=== PATIENT | male | born 1955 | race Caucasian/White ===

== ENCOUNTER 2018-01-20 11:12 | Emergency (ER) | payer OTHER ==
[2018-01-20] MEDS ORDERED: Ketorolac Tromethamine 30 MG/ML VIAL ONE (11:29)
[2018-01-20] MEDS ORDERED: CEFAZOLIN 1 GM VIAL ONE (12:06)
[2018-01-20] MEDS ORDERED: Water For Injection,Sterile 20 ML ONE (12:06)
[2018-01-20] MEDS ORDERED: HYDROcodone/Acetaminophen 10/325 mg Tablet ONE (12:24)
--- NOTE | 2018-01-20 17:31 | RAD ---
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 Some m inor osteophytes are seen in the IP joint. No other fractures were detected. 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 POS: HOME
== END 2018-01-20 12:30 | disposition home or self-care (01) ==
LOC: BURERS 11:12
DX: S62.522B Displaced fracture of distal phalanx of left thumb, initial encounter for open fracture (principal); S61.112A Laceration without foreign body of left thumb with damage to nail, initial encounter; N40.0 Benign prostatic hyperplasia without lower urinary tract symptoms; W26.8XXA Contact with other sharp object(s), not elsewhere classified, initial encounter; Y92.009 Unspecified place in unspecified non-institutional (private) residence as the place of occurrence of the external cause
CPT/HCPCS: 12002; 96374; 96375; J0690; J1885; J2001

== ENCOUNTER 2018-10-23 19:14 | Emergency (ER) | payer OTHER ==
[2018-10-23 20:25] LABS: #Basophils 0.1 thou/uL (0.0-0.2); #Eosinphils 0.4 thou/uL (0.0-0.7); #Lymphocytes 2.5 thou/uL (1.20-3.40); #Monocytes 1.1 thou/uL (0.11-0.59); #Neutrophils 7.6 thou/uL (1.40-6.50); %Basophils 0.5 % (0.0-1.0); %Eosinophils 3.4 % (0.0-10.0); %Lymphocytes 21.1 % (21.0-51.0); %Monocytes 9.4 % (0.0-10.0); %Neutrophils 65.6 % (42.0-75.0); Mean Corpuscular HGB CONC 35.5 g/dL (32.0-36.0); Mean Corpuscular Hemoglobin 30.1 pg (27.0-31.0); Mean Corpuscular Volume 84.9 fL (78.0-98.0); Mean Platelet Volume 6.2 fL (7.4-10.4); Platelet Count 209 thou/uL (130-400); RBC Distribution Width 12.9 % (11.5-14.5); Red Blood Cell (RBC) Count 5.32 mill/uL (4.70-6.10); White Blood Cell (WBC) Count 11.6 thou/uL (4.8-10.8)
[2018-10-23 20:35] LABS: ALT (SGPT) 29 U/L (8-55); AST (SGOT) 14 U/L (5-34); Alkaline Phosphatase 70 U/L (40-150); Anion Gap 11 mmol/L (10-20); BUN (Urea Nitrogen) 19 mg/dL (8.4-25.7); Bilirubin, Total 0.7 mg/dL (0.2-1.2); Calc. Creatinine Clearance 0 mL/min (70-130); Calcium 9.3 mg/dL (7.8-10.44); Carbon Dioxide 26 mmol/L (23-31); Chloride 104 mmol/L (98-107); Estimated GFR-MDRD 65; Globulin 2.9 g/dL (2.4-3.5); Glucose 116 mg/dL (80-115); Potassium 4.2 mmol/L (3.5-5.1); Protein, Total 6.9 g/dL (5.8-8.1); Sodium 137 mmol/L (136-145)
== END 2018-10-23 20:18 | disposition short-term general hospital (02) ==
LOC: BURERS 19:14
DX: H53.2 Diplopia (principal); R42 Dizziness and giddiness
CPT/HCPCS: 80053; 85025; 99285